=== PATIENT | female | born 1990 | race African-American/Black ===

== ENCOUNTER 2020-11-11 07:04 | Emergency (ER) | payer OTHER, SELFPAY ==
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
[2020-11-11 09:44] VITALS: TEMP 97.8; O2SAT 100
[2020-11-11 09:48] VITALS: BP 131/79
--- NOTE | 2020-11-11 10:33 | RAD REPORT ---
EXAM DESCRIPTION: RAD - Knee Left 3 View - 11/11/2020 8:04 am CLINICAL HISTORY: PAIN COMPARISON: No comparisons FINDINGS: Mild osteoarthritic changes are present greatest involving the lateral compartment. There is a small suprapatellar joint effusion. No acute fracture evident. If pain persists, recommend follo wup CT or MR imaging of the knee.
== END 2020-11-11 09:36 | disposition home or self-care (01) ==
LOC: ER 07:04
DX: S80.02XA Contusion of left knee, initial encounter (principal); V89.2XXA Person injured in unspecified motor-vehicle accident, traffic, initial encounter
CPT/HCPCS: 99284

== ENCOUNTER 2021-06-06 07:44 | Emergency (ER) | payer SELFPAY ==
--- OUTSIDE RECORDS SUMMARY | 2021-06-06 07:47 | XMS REPORT | Continuity of Care Document ---
:1990 Author Organization [facility] t Address [facility] [address] [place] [address] Care Team Providers Name Role Phone ZULMA Attending Clinician Unavailable SHAYLEE Attending Clinician Unavailable Mustapha HOUSER Attending Clinician Unavailable Payers Payer Name Policy Type Policy Number Effective Date Expiration Date S tam[place] [employer] [place] [id number] 2020 00:00:00 WOMEN Problems Condition Condition Condition Status Onset Resolution Last Treating Co mments Source Name Details Category Date Date Treatment Clinician Date Menstrual Menstrual Disease Active [facility] periods periods 4-29 [facility] irregular irregular 00:00: 00 Pelvic Pelvic Disease Active 2018-06 [facility] pain in pain in 127 [facility] female female 00:00: 00 Other Other Disease Active [facility] specified specified 6- health health 00:00: status status 00 Abnormal Abnormal Disease Active [facility] uterine uterine 08 Health bleeding bleeding 00:00: 00 Displaceme Displaceme Disease Active U T nt of nt of 5-08 Health intrauteri intrauteri 00:00: ne ne 00 contracept contracept zeenat device zeenat device Carpal Carpal Disease Active 2016-06 [facility] tunnel tunnel 1-28 [facility] syndrome syndrome 00:00: of right of right 00 wrist wrist IUD IUD Disease Active 2015-06 [facility] (intrauter (intrauter 0-27 He alth ine ine 00:00: device) in device) in [address] Bacterial Bacterial Disease Active 2015-06 [facility] vaginosis vaginosis 0-07 Heal 00:00: 00 Encounter Encounter Disease Active 2015-06 [facility] for for 0-05 [facility] insertion insertion 00:00: of of 00 intrauteri intrauteri ne ne contracept contracept zeenat device zeenat device Abdominal Abdominal Disease Active [facility] pain pain 9-06 Health 00:00: 00 Acute Acute Disease Active UT bronchitis bronchitis 8-24 He alth 00:00: 00 Disease Active U T exam exam 08-29 Health 00:00: 00 Hypertensi Hypertensi Disease Active U T on on 12-22 Health 00:00: 00 Amenorrhea Amenorrhea Disease Active U T , , 6-12 Health secondary secondary 00:00: 00 Morbid Morbid Disease Active [facility] obesity obesity 09-02 Health 00:00: 00 Polycystic Polycystic Disease Active U T ovarian ovarian 09-02 Health syndrome syndrome 00:00: 00 Former Former Disease Active [facility] smoker smoker 09-02 Health 00:00: 00 Urinary Urinary Disease Active UT tract tract 09-01 Health infection infection 00:00: 00 Exposure Exposure Disease Active UT to STD to STD 10 Health 00:00: 00 Other Other Disease Active UT pruritus pruritus 10 Health 00:00: 00 Poor Poor Disease Active U T growth growth 10 Health affecting affecting 00:00: management management 00 of mother, of mother, antepartum antepartum Disease Active UT state, state, 5-10 Health incidental incidental 00:00: 00 Spontaneou Spontaneou Disease Active U T s s 5-10 He alth 00:00: 00 Vaginal Vaginal Disease Active UT discharge discharge 5-10 Heal th 00:00: 00 Yeast Yeast Disease Active UT infection infection 5-10 Heal th involving involving 00:00: the vagina the vagina 00 and and surroundin surroundin g area g area Allergies, Adverse Reactions, Alerts This patient has no known allergies or adverse reactions. Social History Social Habit Start Date Stop Date Quantity Comments Source Exposure to Not sure [facility] SARS-CoV-2 (event) Tobacco use and 2020-11-27 2020-11-27 [facility] 00:[facility]:00 00:00:00 Sex Ass[birth year] At [birth year] [facility] 00:00:00 00:00:00 Smoking Status Start Date Stop Date Source Former smoker 2020-11-27 00:00:00 2020-11-27 00:00:00 [facility] Medications Ordered Filled Start Stop Current Ordering Indication Dosage Frequency Signature Comments Components Source Medication Medication Date Date Medication? Clinician (SIG) Name Name cefTRIAXone 2020- No [id number] 250mg Inject 1 [facility] 250 mg/mL 01-03 07-15 mL (250 mg Hea lth in sterile 00:00: 04:59 total) water (PF) 00 :00 into the injection shoulder, IM syringe thigh, or buttocks 1 (one) time for 1 dose. azithromyci 2020- No [id number] Take 4 UT n 12-22 07-08 tablets x Health (Zithromax) 00:00: 04:59 1 250 MG 00 :00 tablet cefTRIAXone 2020- No [id number] 250mg Inject 1 UT 250 mg/mL 12-22-03 mL (250 mg Hea lth in sterile 00:00: 04:59 total) water (PF) 00 :00 into the injection shoulder, IM syringe thigh, or buttocks 1 (one) time for 1 dose. norelgestro Yes [id number] Apply 1 UT min-ethinyl 6-29 patch each He alth estradiol 00:00: week for 3 (Xulane) 00 weeks, 150-35 then MCG/24HR remove for 1 week. norelgestro Yes [id number] Apply 1 UT min-ethinyl 6-29 patch each He alth estradiol 00:00: week for 3 (Xulane) 00 weeks, 150-35 then MCG/24HR remove for 1 week. norelgestro Yes [id number] Apply 1 UT min-ethinyl 6-29 patch each He alth estradiol 00:00: week for 3 (Xulane) 00 weeks, 150-35 then MCG/24HR remove for 1 week. norelgestro Yes [id number] Apply 1 UT min-ethinyl 6-29 patch each He alth estradiol 00:00: week for 3 (Xulane) 00 weeks, 150-35 then MCG/24HR remove for 1 week. norethindro 2020- No TAKE 1 UT ne-ethinyl 8-26 06-29 TABLET Health estradiol 00:00: 00:00 DAILY FOR ([place]is[place] FE 00 :00 21 DAYS, 07/12) 1-20 THEN 7 MG-MCG TABLET-ELAINE tablet E DAYS REPEAT. Immunizations Ordered Immunization Filled Immunization Date Status Commen ts Source Name Name Tdap 2015-05-17 Completed [facility] 00:00:00 Tdap 2015-05-17 Completed [facility] 00:00:00 Tdap 2015-05-17 Completed [facility] 00:00:00 Tdap 2015-05-17 Completed [facility] 00:00:00 Influenza, injectable, 2015-03-08 Completed [facility] quadrivalent, 00:00:00 preservative free Influenza, injectable, 2015-03-08 Completed [facility] quadrivalent, 00:00:00 preservative free Influenza, injectable, 2015-03-08 Completed [facility] quadrivalent, 00:00:00 preservative free Influenza, injectable, 2015-03-08 Completed [facility] quadrivalent, 00:00:00 preservative free Influenza, injectable, 2012-03-17 Completed [facility]rivalent 00:00:00 Influenza, injectable, 2012-03-17 Completed [facility]rivalent 00:00:00 Influenza, injectable, 2012-03-17 Completed [facility]rivalent 00:00:00 Influenza, injectable, 2012-03-17 Completed [facility]rivalent 00:00:00 HPV, Quadrivalent 2012-01-30 [facility]pleted [facility] 00:[facility]:00 HPV, Quadrivalent 2012-01-30 [facility]pleted [facility] 00:00:00 HPV, Quadrivalent 2012-01-30 [facility] 00:00:00 HPV, Quadrivalent 2012-01-30 [facility]pleted [facility] 00:00:00 HPV, Quadrivalent 2011-11-04 Completed [facility] 00:00:00 HPV, Quadrivalent 2011-11-04 Completed [facility] 00:00:00 HPV, Quadrivalent 2011-11-04 Completed [facility] 00:00:00 HPV, Quadrivalent 2011-11-04 Completed [facility] 00:[facility]:00 Vital Signs Vital Name Observation Time Observation Value Comments Source Systolic blood pressure 2020-12-19 18:56:00 130 mm[Hg] [facility] Diastolic blood pressure 2020-12-19 18:56:00 83 mm[Hg] [facility] Heart rate 2020-12-19 18:56:00 86 /min [facility] Body temperature 2020-12-19 18:56:00 36.83 [facility] Body height 2020-12-19 18:56:00 165.1 cm [facility] Body weight 2020-12-19 18:56:00 120.657 kg [facility] BMI 2020-12-19 18:56:00 44.26 [facility] This patient has no known procedures. Encounters Start End Encounter Admission Attending Care Care Encounter Source Date/Time Date/Time Type Type Clinicians Facility Department ID 2020-11-22 Outpatient ZULMA [facility] [id number] [place] 09:21:03 , [facility] 2020-10-28 Outpatient SHAYLEE, [facility] [id number] [place] 03:26:39 Formerly [facility] 2021-01-12 2021-01-12 Telephone Arleth Luciano [facility] [id number] 0.114 [id number] [place] 00:00:00 00:00:00 Arleth Luciano [id number] [facility] MEDICAL [id number] [facility] [id number] 2021-01-03 2021-01-03 Telephone Arleth Luciano UTP 1.2.84 0.114 [id number] [place] 00:00:00 00:00:00 Arleth Luciano [id number] Health MEDICAL [id number] BU[facility] [id number] 2020-12-22 2020-12-22 Telephone Arleth Luciano UTP 1.2.84 0.114 [id number] [place] 00:00:00 00:00:00 Arleth Luciano [id number] Health MEDICAL [id number] [facility] [id number] 2020-12-19 2020-12-19 Office DACIA Jon [id number] [place] 13:50:12 14:05:12 Visit Gale BRUNER [id number] H [facility] MEDICAL [id number] [facility] [id number] Results This patient has no known results.
--- NOTE | 2021-06-06 08:06 | EDPHYS ---
Physician Documentation [facility] Name: Geraldine Yun Age: 30 yrs Sex: Female : 1990 Arrival Date: 06/06/2021 Time: 07:45 Bed 15 Private MD: ED Physician Anastacio Le HPI: 06/06 08:01 This 30 yrs old Black Female presents to ER via Ambulatory with complaints of Ear Pain, rn Headache. 08:01 The patient presents with pain, mild. The complaints affect the right ear. Onset: The rn symptoms/episode began/occurred 2 day(s) ago. Modifying factors: The symptoms are alleviated by nothing, the symptoms are aggravated by nothing. Associated signs and symptoms: Pertinent negatives: fever, tinnitus, vertigo. Severity of symptoms: At their worst the symptoms were mild in the emergency department the symptoms are unchanged. The patient has not experienced similar symptoms in the past. The patient has not recently seen a physician. Pt reports right ear pain for 2 days, no trauma, no fever, reports recent upper respiratory infection that has improved, reports muffled hearing right ear. No vertigo. . 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 - Social history:: Smoking status: Patient reports the use of cigarette tobacco products, smokes one-half pack cigarettes per day, Smoking status: Patient reports the use of cigarette tobacco products, Patient/guardian denies using street drugs. - Family history:: not pertinent. - Hospitalizations: : No recent hospitalization is reported. ROS: 08:01 Constitutional: Negative for fever, chills, and weight loss, Eyes: Negative for injury, rn pain, redness, and discharge, ENT: + right ear pain Neck: Negative for injury, pain, and swelling, Cardiovascular: Negative for chest pain, palpitations, and edema, Respiratory: Negative for shortness of breath, cough, wheezing, and pleuritic chest pain, Neuro: Negative for weakness, numbness, tingling, and seizure. Exam: 08:01 Constitutional: This is a well developed, well nourished patient who is awake, alert, rn and in no acute distress. Head/Face: Normocephalic, atraumatic. Eyes: Periorbital areas with no swelling, redness, or edema. ENT: Right TM with mild erythema, no bulging, no perforation Neck: Trachea midline, no masses palpated, and no cervical lymphadenopathy. Supple, full range of motion without nuchal rigidity, or vertebral point tenderness. No Meningismus. Neuro: Awake and alert, GCS 15, oriented to person, place, time, and situation. Cranial nerves II-XII grossly intact. Motor strength 5/5 in all extremities. Sensory grossly intact. Cerebellar exam normal. Normal gait. Vital Signs: 07:52 Temp 98.3(TE); Weight 106.59 kg; Height 5 ft. 5 in. (165.10 cm); Pain 8/10; ss 07:53 BP 158 / 105; Pulse 81; Pulse Ox 100% on R/A; ll1 08:06 BP 130 / 88; Pulse 78; Resp 15; Pulse Ox 100% ; Pain 8/10; eo2 07:52 Body Mass Index 39.11 (106.59 kg, 165.10 cm) ss 08:06 Dr. Le made aware of pain and pt's request for pain medication; per provider, pt may eo2 take OTC meds discussed with her after discharge. MDM: 07:45 Patient medically screened. rn 08:01 Differential diagnosis: otitis media, foreign body, acute otalgia. Data reviewed: vital rn signs, nurses notes. Data reviewed: and as a result, I will discharge patient. Counseling: I had a detailed discussion with the patient and/or guardian regarding: the historical points, exam findings, and any diagnostic results supporting the discharge/admit diagnosis, the need for outpatient follow up, to return to the emergency department if symptoms worsen or persist or if there are any questions or concerns that arise at home. Special discussion: I discussed with the patient/guardian in detail that at this point there is no indication for admission to the hospital. It is understood, however, that if the symptoms persist or worsen the patient needs to return immediately for re-evaluation. 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
--- NOTE | 2021-06-06 08:06 | ER ---
Nurse's Notes [facility] Name: Geraldine Yun Age: 30 yrs Sex: Female : 1990 Arrival Date: 06/06/2021 Time: 07:45 Bed 15 Private MD: Diagnosis: Otalgia, right ear Presentation: 06/06 07:52 Chief complaint: Patient states: R ear pain that began Friday. Coronavirus screen: ss Client denies travel out of the [place] in the last 14 days. Ebola Screen: Patient denies exposure to infectious person. Patient denies travel to an Ebola-affected area in the 21 days before illness onset. Initial Sepsis Screen: Does the patient meet any 2 criteria? No. Patient's initial sepsis screen is negative. Does the patient have a suspected source of infection? No. Patient's initial sepsis screen is negative. Risk Assessment: Do you want to hurt yourself or someone else? Patient reports no desire to harm self or others. Onset of symptoms was June 04, 2021. 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 - Social history:: Smoking status: Patient reports the use of cigarette tobacco products, smokes one-half pack cigarettes per day, Smoking status: Patient reports the use of cigarette tobacco products, Patient/guardian denies using street drugs. - Family history:: not pertinent. - Hospitalizations: : No recent hospitalization is reported. Screenin:06 Abuse screen: Denies threats or abuse. Nutritional screening: No deficits noted. eo2 Tuberculosis screening: No symptoms or risk factors identified. Fall Risk None identified. Assessment: 08:06 General: Appears in no apparent distress. comfortable, Behavior is calm, cooperative. eo2 Pain: Complains of pain in head and right ear Pain Quality of pain is described as throbbing. Neuro: Reports headache parietal area, frontal area, Denies dizziness, photophobia. Cardiovascular: No deficits noted. Respiratory: No deficits noted. EENT: Reports right ear ache since Friday, reports she had a cold last week, reports ear ache has caused headache, expressed concern for an ear infection. Vital Signs: 07:52 Temp 98.3(TE); Weight 106.59 kg; Height 5 ft. 5 in. (165.10 cm); Pain 8/10; ss 07:53 BP 158 / 105; Pulse 81; Pulse Ox 100% on R/A; ll1 08:06 BP 130 / 88; Pulse 78; Resp 15; Pulse Ox 100% ; Pain 8/10; eo2 07:52 Body Mass Index 39.11 (106.59 kg, 165.10 cm) ss 08:06 Dr. Le made aware of pain and pt's request for pain medication; per provider, pt may eo2 take OTC meds discussed with her after discharge. ED Course: 07:45 Patient arrived in ED. am2 07:45 Anastacio Le MD is Attending Physician. rn 07:53 Triage completed. ss 07:53 Arm band placed on Patient placed in an exam room, on a stretcher. ll1 07:55 Stephanie Gaytan, CORRINA is Primary Nurse. eo2 08:06 Patient has correct armband on for positive identification. Bed in low position. Call eo2 light in reach. Door closed. Noise minimized. 08:06 No provider procedures requiring assistance completed. Patient did not have IV access eo2 during this emergency room visit. Administered Medications: No medications were administered Outcome: 08:05 Discharge ordered by . rn 08:20 Discharged to home ambulatory. eo2 08:20 Condition: stable 08:20 Discharge instructions given to patient, Instructed on discharge instructions, follow up and referral plans. medication usage, Demonstrated understanding of instructions, follow-up care, medications, Prescriptions given X 1. 08:22 Patient left the ED. eo2 Signatures: Anastacio Le MD MD rn Smirch, Shelby, RN RN Arabella Marcus am2 Savage Galloway RN RN ll1 Stephanie Gaytan RN RN eo2
[2021-06-06 09:14] VITALS: TEMP 98.3
[2021-06-06 09:15] VITALS: O2SAT 100
[2021-06-06 09:17] VITALS: BP 130/88
== END 2021-06-06 08:22 | disposition home or self-care (01) ==
LOC: ER 07:44
DX: H92.01 Otalgia, right ear (principal); F17.210 Nicotine dependence, cigarettes, uncomplicated
CPT/HCPCS: 99282

== ENCOUNTER 2025-04-17 10:00 | Emergency (ER) | payer OTHER ==
--- NOTE | 2025-04-17 11:57 | RAD REPORT ---
EXAM: OB Limited HISTORY: Decreased Movement COMPARISON: None TECHNIQUE: Multiple grayscale and color Doppler images were obtained in a transabdominal pelvic ultra sound. Spectral analysis of the Doppler waveforms of the ovaries were performed. FINDINGS: UTERUS: Cephalic presenting gestation with positive heart tones. heart rate measured at 1 39 bpm. The cervix is closed measuring 3 cm. No funneling. Femur length measures 7.1 cm which is consistent with 36 week 4 day. The JEREMY measures 10.4 cm with maximum vertical pocket 4.5 cm. This is within normal limits. No free fluid is seen in the pelvis. RIGHT OVARY: Not visualized, possibly obscured by bowel gas. LEFT OVARY: Not visualized, possibly obscured by bowel gas. IMPRESSION: Single cephalic presenting gestation with positive heart tones. JEREMY is within normal limits. Cl osed cervix.
--- NOTE | 2025-04-17 12:14 | EDPHYS ---
Physician Documentation [facility] Name: Geraldine Yun Age: 34 yrs Sex: Female : 1990 Arrival Date: 04/17/2025 Time: 10:00 Bed 8 Private MD: ED Physician Anastacio Le HPI: 04/17 10:52 This 34 yrs old Black Female presents to ER via Ambulatory with complaints of 36 Weeks dr5 , Decreased movement. 10:52 Onset: The symptoms/episode began/occurred this morning. Patient is a 34-year-old dr5 female with history of no past medical history coming in with decreased movement that started this morning. Patient reports he is usually active in the morning and has been less active this morning. Patient denies vaginal bleeding, vaginal discharge, or any other discharge. Patient reports her OB is in [place] and wanted to make sure baby's heart rate was okay. Patient denies pain at this time. Patient reports having an OB appointment last week with normal results and patient states that OB reports baby will likely come early as he is already almost 7 pounds and fully grown.. 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 - Infectious Disease History:: Denies. - Social history:: Smoking status: Patient denies any tobacco usage or history of. ROS: 10:52 Constitutional: as per hpi dr5 Exam: 10:52 Constitutional: This is a well developed, well nourished patient who is awake, alert, dr5 and in no acute distress. Head/Face: Normocephalic, atraumatic. Eyes: Pupils equal round and reactive to light, extra-ocular motions intact. Lids and lashes normal. Conjunctiva and sclera are non-icteric and not injected. Cornea within normal limits. Periorbital areas with no swelling, redness, or edema. ENT: Nares patent. No nasal discharge, no septal abnormalities noted. Tympanic membranes are normal and external auditory canals are clear. Oropharynx with no redness, swelling, or masses, exudates, or evidence of obstruction, uvula midline. Mucous membranes moist. Neck: Trachea midline, no thyromegaly or masses palpated, and no cervical lymphadenopathy. Supple, full range of motion without nuchal rigidity, or vertebral point tenderness. No Meningismus. Chest/axilla: Normal chest wall appearance and motion. Nontender with no deformity. No lesions are appreciated. Cardiovascular: Regular rate and rhythm with a normal S1 and S2. Normal PMI, no JVD. No pulse deficits. Respiratory: Lungs have equal breath sounds bilaterally, clear to auscultation. No rales, rhonchi or wheezes noted. No increased work of breathing, no retractions or nasal flaring. Abdomen/GI: Soft, non-tender, non-distended Back: No spinal tenderness. No costovertebral tenderness. Full range of motion. Skin: Warm, dry with normal turgor. Normal color with no rashes, no lesions, and no evidence of cellulitis. MS/ Extremity: Pulses equal, no cyanosis. Neurovascular intact. Full, normal range of motion. Neuro: Awake and alert, GCS 15, oriented to person, place, time, and situation. Cranial nerves II-XII grossly intact. Motor strength 5/5 in all extremities. Sensory grossly intact. Cerebellar exam normal. Normal gait. Vital Signs: 10:20 BP 136 / 85; Pulse 70; Resp 17; Temp 98; Pulse Ox 100% ; Weight 126.1 kg; Height 5 ft. ll1 5 in. ; 11:12 BP 139 / 84; Pulse 73; Resp 18; Pulse Ox 100% on R/A; dd2 12:02 BP 132 / 81; Pulse 75; Resp 16; Pulse Ox 100% on R/A; dd2 10:20 Body Mass Index 46.26 (126.10 kg, 165.1 cm) ll1 Dejah Coma Score: 10:42 Eye Response: spontaneous(4). Motor Response: obeys commands(6). Verbal Response: ll1 oriented(5). Total: 15. Procedures: 10:52 Ultrasound: Type: OB, Bedside US completed with FHR of 125 completed by me.. dr5 MDM: 10:15 Medical Screening Exam initiated dr5 12:18 Differential diagnosis: viral Infection, Umbilical Restriction, Imminent Delivery, dr5 Dehydration. Data reviewed: vital signs, nurses notes, radiologic studies, ultrasound. Data reviewed: I have discussed the patient's presentation/case with the attending Emergency Department Physician;. Consideration of Admission/Observation Escalation of care including admission/observation considered. Escalation considered patient found to have vaginal bleeding, vaginal discharge, leaking of amniotic fluid, or abdominal pain. I considered the following discharge prescriptions or medication management in the emergency department I discussed and recommended Over The Counter medications. Care significantly affected by the following Social Determinants of Health: Poor access to healthcare and/or lack of insurance, Poor access to transportation, Problems related to employment. Counseling: I had a detailed discussion with the patient and/or guardian regarding the historical points, exam findings, and any diagnostic results supporting the discharge/admit diagnosis, the presence of at least one elevated blood pressure reading (>120/80) during this emergency department visit, radiology results, the need for outpatient follow up, for definitive care, an OB/Gyne specialist, to return to the emergency department if symptoms worsen or persist or if there are any questions or concerns that arise at home. Special discussion: I discussed with the patient/guardian in detail that at this point there is no indication for admission to the hospital. It is understood, however, that if the symptoms persist or worsen the patient needs to return immediately for re-evaluation. Based on the history and exam findings, there is no indication for further emergent testing or inpatient evaluation. I discussed with the patient/guardian the need to see the OB Gyne specialist for further evaluation of the symptoms. ED course: Ultrasound results reviewed with patient and given copy to patient.. 04/17 11:13 Order name: US OB Complete dr5 04/17 11:16 Order name: OB Limited; Complete Time: 11:58 EDMS 04/17 11:49 Order name: TRANSVAG OB CERVIX ASSESSMENT EDMS Administered Medications: No medications were administered Disposition: 15:18 Co-signature as Attending Physician, Anastacio Le MD I reviewed the patient's care rn provided by the Advanced Practice Provider and agree with the diagnosis and treatment plan. Disposition Summary: 04/17/25 12:13 Discharge Ordered Notes: Location: Home dr5 Condition: Stable dr5 Diagnosis - 36 weeks gestation of dr5 Followup: dr5 - With: Emergency Department - When: As needed - Reason: Worsening of condition Followup: dr5 - With: Private Physician - When: 1 - 2 days - Reason: Recheck today's complaints, Continuance of care, Re-evaluation by your physician Discharge Instructions: - Discharge Summary Sheet dr5 - Abdominal Pain During dr5 Forms: - Medication Reconciliation Form dr5 - Patient Portal Instructions dr5 - Leadership Thank You Letter dr5 Signatures: Dispatcher [employer] Anastacio Valdez MD MD rn Lewis, Lynsay RN RN ll1 TRINA ZUÑIGA RN RN dd2 Didier Ro, HEAT SET OPERATOR-C HEAT SET OPERATOR-[facility] [place]5
--- NOTE | 2025-04-17 12:14 | ER ---
Nurse's Notes [facility] Name: Geraldine Yun Age: 34 yrs Sex: Female : 1990 Arrival Date: 04/17/2025 Time: 10:00 Bed 8 Private MD: Diagnosis: 36 weeks gestation of Presentation: 04/17 10:20 Chief complaint: Patient states: g3, p1 36 WEEKS , DECREASED MOVEMENT. ll1 Coronavirus screen: Client denies travel out of the [place] in the last 14 days. At this time, the client does not indicate any symptoms associated with coronavirus-19. Ebola Screen: Patient denies travel to an Ebola-affected area in the 21 days before illness onset. Initial Sepsis Screen: Does the patient meet any 2 criteria? No. Patient's initial sepsis screen is negative. Does the patient have a suspected source of infection? No. Patient's initial sepsis screen is negative. Risk Assessment: Do you want to hurt yourself or someone else? Patient reports no desire to harm self or others. Onset of symptoms was April 17, 2025. 10:20 Method Of Arrival: Ambulatory ll1 10:20 Acuity: ANNA 3 ll1 SHOP TECH: 12:18 Verified dd2 Historical: - Allergies: 10:20 orange juice; ll1 10:20 [place] Concentrate; ll1 - PSHx: 10:20 R knee; ll1 - Immunization history:: Adult Immunizations up to date. - Infectious Disease History:: Denies. - Social history:: Smoking status: Patient denies any tobacco usage or history of. Screenin:42 [facility] ED Fall Risk Assessment (Adult) History of falling in the last 3 months, ll1 including since admission No falls in past 3 months (0 pts) Confusion or Disorientation No (0 pts) Intoxicated or Sedated No (0 pts) Impaired Gait No (0 pts) Mobility Assist Device Used No (0 pt) Altered Elimination No (0 pt) Score/Fall Risk Level 0 - 2 = Low Risk Oriented to surroundings, Maintained a safe environment, Educated pt \T\ family on fall prevention, incl call for assistance when getting out of bed, Assessed \T\ reinforced patient's understanding of fall precautions. Abuse screen: Denies threats or abuse. Denies injuries from another. Nutritional screening: No deficits noted. Tuberculosis screening: No symptoms or risk factors identified. Assessment: 10:42 General: Appears in no apparent distress. Behavior is cooperative, appropriate for age, ll1 anxious. Pain: Denies pain. Neuro: No deficits noted. Cardiovascular: No deficits noted. Parent/caregiver reports patient has had DECREASE MOVEMENTS THIS MORNING. Respiratory: No deficits noted. GI: No deficits noted. No signs and/or symptoms were reported involving the gastrointestinal system. : No deficits noted. No signs and/or symptoms were reported regarding the genitourinary system. EENT: No deficits noted. No signs and/or symptoms were reported regarding the EENT system. Derm: No deficits noted. No signs and/or symptoms reported regarding the dermatologic system. Musculoskeletal: No deficits noted. No signs and/or symptoms reported regarding the musculoskeletal system. Circulation, motion, and sensation intact. Range of motion: intact in all extremities. Vital Signs: 10:20 BP 136 / 85; Pulse 70; Resp 17; Temp 98; Pulse Ox 100% ; Weight 126.1 kg; Height 5 ft. ll1 5 in. ; 11:12 BP 139 / 84; Pulse 73; Resp 18; Pulse Ox 100% on R/A; dd2 12:02 BP 132 / 81; Pulse 75; Resp 16; Pulse Ox 100% on R/A; dd2 10:20 Body Mass Index 46.26 (126.10 kg, 165.1 cm) ll1 Vitals: 10:42 Heart Tones 125 BPM VIA DOPPLER AND ULTRASOUND, VERIFIED BY NOEMI ELLIOTT RN. ll1 Dejah Coma Score: 10:42 Eye Response: spontaneous(4). Motor Response: obeys commands(6). Verbal Response: ll1 oriented(5). Total: 15. ED Course: 10:02 Patient arrived in ED. eb 10:15 Noemi Elliott FNP-C is PHCP. dr5 10:15 Anastacio Le MD is Attending Physician. dr5 10:19 Arm band placed on Patient placed in an exam room, on a stretcher. ll1 10:21 Triage completed. ll1 10:23 Sanford Shultz, CORRINA is Primary Nurse. bp 10:42 Patient has correct armband on for positive identification. Bed in low position. Call ll1 light in reach. Client placed on continuous cardiac and pulse oximetry monitoring. NIBP monitoring applied. 10:42 No provider procedures requiring assistance completed. Patient did not have IV access ll1 during this emergency room visit. 10:42 Patient maintains SpO2 saturation greater than 95% on room air. ll1 11:49 TRANSVAG OB CERVIX ASSESSMENT In Process Unspecified. EDMS 11:51 OB Limited In Process Unspecified. EDMS 11:51 TRINA ZUÑIGA, RN is Primary Nurse. dd2 12:18 Provided Education on: D/C EDUCATION PROVIDED BY NOEMI ELLIOTT NP. dd2 Administered Medications: No medications were administered Medication: 10:42 VIS not applicable for this client. ll1 Outcome: 12:13 Discharge ordered by . dr5 12:17 Discharged to home ambulatory, dd2 12:17 Condition: good 12:17 Discharge instructions given to patient, D/C INSTRUCTIONS GIVEN TO PT BY NOEMI ELLIOTT NP. PT LEFT WITHOUT SIGNING D/C FORM Instructed on discharge instructions, follow up and referral plans. Demonstrated understanding of instructions, follow-up care, 12:18 Patient left the ED. dd2 Signatures: Dispatcher [employer] Sanford Medrano, RN RN Shayy Young Lynsay, RN RN ll1 TRINA ZUÑIGA, RN RN dd2 Noemi Elliott, CAGE MAKER MACHINE-C CAGE MAKER MACHINE-Cdr5
[2025-04-17 12:54] VITALS: TEMP 98; O2SAT 100
[2025-04-17 12:56] VITALS: BP 132/81
== END 2025-04-17 12:18 | disposition home or self-care (01) ==
LOC: ER 10:00
DX: O36.8130 Decreased fetal movements, third trimester, not applicable or unspecified (principal); Z3A.36 36 weeks gestation of pregnancy
CPT/HCPCS: 76815; 76817; 99283